=== PATIENT | female | born 1975 | race Caucasian/White ===

== ENCOUNTER 2022-05-01 08:37 | Emergency (ER) | payer OTHER ==
[2022-05-01 09:01] LABS: Epithelial Cells RARE /HPF (FEW); Mucus SLIGHT /HPF (NEGATIVE)
[2022-05-01 09:02] LABS: Appearance CLEAR (CLEAR); Bilirubin NEGATIVE (NEGATIVE); Dipstick done @ ? MAIN LAB; Glucose NEGATIVE (NEGATIVE); Ketones NEGATIVE (NEGATIVE); Nitrite NEGATIVE (NEGATIVE); Protein,Urine Dip 30 (Negative); RBC LARGE Ery/ul (0-5); Specific Gravity >=1.030 (1.005-1.025); Urine Cultured Indicated? YES; Urobilinogen 0.2 mg/dL (0-1)
[2022-05-01] MEDS ORDERED: TORAdol 30 mg Injection IM ONE (09:08)
[2022-05-01] MEDS ORDERED: Norflex 60 MG/2 ML IM ONE (09:09)
[2022-05-01] MEDS ORDERED: Norflex 60 MG/2 ML ONE (09:16)
[2022-05-01] MEDS ORDERED: TORAdol 30 mg Injection ONE (09:16)
[2022-05-01 09:39] LABS: Absolute Neutrophil Ct (ANC) 5.14 x10^3/uL (1.4-6.9); Basophil (Absolute #) 0.03 x10^3/uL (0-0.4); Eosinophil (Absolute #) 0 x10^3/uL (0-0.5); Hematocrit 39.4 % (35-47); Hemoglobin 13.2 g/dL (12.0-16.0); Lymphocyte (Absolute #) 1.34 x10^3/uL (1.0-4.6); Lymphocytes % 19.4 % (24.0-44.0); Mean Corpuscular Hemoglobin 33.5 pg (26-32); Mean Corpuscular Hgb Concent. 33.5 g/dL (32-36); Mean Platelet Volume 9.1 fL (7.5-11.0); Monocyte (Absolute #) 0.37 x10^3/uL (0.0-1.3); Monocytes % 5.4 % (0.0-12.0); Neutrophil % 74.4 % (36.0-66.0); Platelet Count 250 x10^3/uL (150-450); Red Blood Count 3.94 x10^6/uL (4.1-5.4); Red Cell Distribution Width 12.3 % (11.5-14.0); White Blood Count 6.9 x10^3/uL (4.0-10.5)
[2022-05-01 09:50] LABS: ALKALINE PHOSPHATASE 67 U/L (38-126); ANION GAP 10.6 MEQ/L (5-15); BLOOD UREA NITROGEN 17 mg/dL (7-17); CHLORIDE 109 mmol/L (98-107); Calcium 8.4 mg/dL (8.4-10.2); Carbon Dioxide 23 mmol/L (22-30); Creatinine 1 0.97 mg/dL (0.52-1.04); EST GLOMERULAR FILTRATION RATE > 60.0 ML/MIN; Glucose 91 mg/dL (74-106); Potassium 3.7 mmol/L (3.5-5.1); SGOT/AST 28 U/L (14-36); SGPT/ALT 28 U/L (0-35); SODIUM 139 mmol/L (137-145); Total Protein 6.9 g/dL (6.3-8.2)
--- NOTE | 2022-05-01 09:56 | XRAY ---
Indication: Low back pain. History kidney stones. Multiple contiguous axial images obtained through the abdomen and pelvis without contrast using renal stone protocol. Comparison: April 01, 2016 Lung bases again demonstrates mild subsegmental atelectasis/scarring. Heart not enlarged. Again small hiatal hernia. New 1-2 mm distal right ureter calculus just proximal to UVJ (image [id number]). No hydronephrosis or hydroureter.. There has been interval cholecystectomy. No free fluid/air. Noncontrasted stomach and bowel loops appear nonobstructed with normal appendix. Remaining liver, pancreas, spleen, adrenal glands, kidneys, ureters, bladder, uterus, and aorta are unremarkable for noncontrast exam. Osseous structures intact. Impression: 1. New 1-2 mm distal right ureter calculus without hydronephrosis/hydroureter. 2. Stable small hiatal hernia. 3. Remaining CT abdomen/pelvis without contrast exam is negative.
[2022-05-01] MEDS ORDERED: Sodium Chloride 0.9% 1000 ML 1,000 ML IV STA (10:22)
[2022-05-01] MEDS ORDERED: Flomax 0.4 MG ONE (10:39)
[2022-05-01] MEDS ORDERED: Sodium Chloride 0.9% 1000 ML 1,000 ML ONE (10:47)
--- NOTE | 2022-05-01 11:00 | ERPHSYRPT ---
- History of Present Illness Time Seen by Provider: 05/01/22 09:03 Source: patient Exam Limitations: no limitations Patient Subjective Stated Complaint: C/O lower back pain since 04/27/22. Patient denies falls or injury. States she was treated for a UTI on 04/01/22 with a 5 day series of antibiotics. She has a history of kidney stones but indicates that this pain feels different than when she previously had kidney stones. Patient states the only time she doesn't have pain is when she is completly still; any movement causes pain to return. Triage Nursing Assessment: Patient ambulated back to ED with a slow gait grasping at her lower back. She is alert and oriented. No SOB. Skin tone normal. No skin alterations noted to back. Patient does display s/s of pain that increase with any movement. Physician History: 46-year-old presented with low back pain bilaterally across sacroiliac area with radiation to both buttocks and upper thighs, moderate to severe sharp for last 4 days, aggravated with movements and better with rest pain without numbness tingling weakness of lower extremities/loss of bowel or bladder control. Timing/Duration: day(s) (4), intermittent, gradual onset, worse Method of Injury: unknown Quality: sharp Back Pain Location: paraspinous muscles Back Pain Radiation: buttocks, upper legs Severity of Pain-Max: severe Severity of Pain-Current: severe Modifying Factors: Improves With: immobilization. Worsens With: movement Associated Symptoms: lower back pain Allergies/Adverse Reactions: No Known Drug Allergies Allergy (Verified 05/01/22 08:49) Hx Tetanus, Diphtheria Vaccination/Date Given: Yes Hx Influenza Vaccination/Date Given: No Hx Pneumococcal Vaccination/Date Given: No Immunizations Up to Date: Yes Travel Risk - International Travel Have you traveled outside of the country in past 3 weeks: No - Coronavirus Screening Are you exhibiting any of the following symptoms?: No Close contact with a COVID-19 positive Pt in past 14-21 Days: No - Vaccine Status Have you recieved a Covid-19 vaccination: Yes 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 - Review of Systems Constitutional: No Symptoms Ears, Nose, & Throat: No Symptoms Respiratory: No Symptoms Cardiac: No Symptoms Abdominal/Gastrointestinal: Abdominal Pain Genitourinary Symptoms: No Symptoms Musculoskeletal: Back Pain Neurological: No Symptoms Psychological: No Symptoms Endocrine: No Symptoms Hematologic/Lymphatic: No Symptoms Immunological/Allergic: No Symptoms - Past Medical History Pertinent Past Medical History: Yes GI Medical History: Gallbladder Disease, Hernia Psycho-Social History: Anxiety Other Medical History: Kidney stones - Past Surgical History Past Surgical History: Yes Gastrointestinal: Cholecystectomy, Hernia Repair Female Surgical History: Dilation & Curettage, Tubal Ligation, Other Other Surgical History: D AND C - Social History Smoking Status: Current every day smoker How long have you smoked: 20 YEARS Exposure to second hand smoke: Yes Drug Use: none Patient Lives Alone: No - Female History Hx Last Menstrual Period: NOW Hx Now: No (Tubal ligation) - Nursing Vital Signs Nursing Vital Signs: Initial Vital Signs Temperature 97.6 F 05/01/22 08:50 Pulse Rate 77 05/01/22 08:50 Respiratory Rate 18 05/01/22 08:50 Blood Pressure 122/67 05/01/22 08:50 O2 Sat by Pulse Oximetry 100 05/01/22 08:50 Pain Scale Pain Intensity [Lower back] 10 Pain Intensity 10 - Physical Exam General Appearance: no apparent distress, alert Eye Exam: PERRL/EOMI Ears, Nose, Throat Exam: normal ENT inspection Neck Exam: normal inspection, supple, full range of motion Respiratory Exam: normal breath sounds, lungs clear Cardiovascular Exam: regular rate/rhythm, normal heart sounds Gastrointestinal Exam: soft, normal bowel sounds, tenderness (Mild tenderness in the flank) Back Exam: normal inspection, decreased range of motion, muscle spasm, point tenderness (Bilateral sacroiliac area), No CVA tenderness, No vertebral tenderness Extremity Exam: normal inspection, normal range of motion Neurologic Exam: alert, oriented x 3, cooperative Skin Exam: normal color SpO2 Interpretation: normal SpO2: 100 O2 Delivery: Room Air Ordered Tests: Active Orders 24 hr Category Date Time Status ABDOMEN AND PELVIS W/0 CONTRAS [CT] Stat Exams 05/01/22 09:42 Completed CBC W DIFF Stat Lab 05/01/22 09:32 Completed CMP Stat Lab 05/01/22 09:32 Completed CULTURE,URINE Stat Lab 05/01/22 08:46 Received UA W/RFX CULTURE Stat Lab 05/01/22 08:46 Completed Medication Summary Generic Name Dose Route Start Last Admin Trade Name Freq PRN Reason Stop Dose Admin Tamsulosin HCl 0.4 mg 05/02/22 10:22 05/01/22 10:40 Tamsulosin Hcl 0.4 Mg Cap PO 05/02/22 10:23 0.4 mg NOW ONE Administration Discontinued Medications Generic Name Dose Route Start Last Admin Trade Name Priya PRN Reason Stop Dose Admin Sodium Chloride 1,000 mls @ 999 mls/hr 05/01/22 10:22 05/01/22 10:48 Sodium Chloride 0.9% 1000 Ml IV 05/01/22 11:22 999 mls/hr .Q1H1M STA Administration Sodium Chloride Confirm 05/01/22 10:47 Sodium Chloride 0.9% 1000 Ml Administered 05/01/22 10:48 Dose 1,000 mls @ ud .ROUTE .STK-MED ONE Ketorolac Tromethamine 30 mg 05/01/22 09:08 05/01/22 09:23 Ketorolac Tromethamine 30 Mg/Ml Inj IM 05/01/22 09:09 30 mg STAT ONE Administration Ketorolac Tromethamine Confirm 05/01/22 09:16 Ketorolac Tromethamine 30 Mg/Ml Inj Administered 05/01/22 09:17 Dose 30 mg .ROUTE .STK-MED ONE Morphine Sulfate Confirm 05/01/22 11:01 Morphine Sulfate 4 Mg/Ml Injection Administered 05/01/22 11:02 Dose 4 mg .ROUTE .STK-MED ONE Morphine Sulfate 4 mg 05/01/22 11:04 05/01/22 11:09 Morphine Sulfate 4 Mg/Ml Injection IV 05/01/22 11:05 4 mg STAT ONE Administration Ondansetron HCl Confirm 05/01/22 11:01 Ondansetron Hcl 4 Mg/2 Ml Vial Administered 05/01/22 11:02 Dose 4 mg .ROUTE .STK-MED ONE Ondansetron HCl 4 mg 05/01/22 11:02 05/01/22 11:03 Ondansetron Hcl 4 Mg/2 Ml Vial IV 05/01/22 11:03 4 mg STAT ONE Administration Orphenadrine Citrate 60 mg 05/01/22 09:09 05/01/22 09:23 Orphenadrine Citrate 60 Mg/2 Ml Vial IM 05/01/22 09:10 60 mg STAT ONE Administration Orphenadrine Citrate Confirm 05/01/22 09:16 Orphenadrine Citrate 60 Mg/2 Ml Vial Administered 05/01/22 09:17 Dose 60 mg .ROUTE .[facility] ONE Tamsulosin HCl Confirm 05/01/22 10:39 Tamsulosin Hcl 0.4 Mg Cap Administered 05/01/22 10:40 Dose 0.4 mg .ROUTE .[facility] ONE Lab/Rad Data: Laboratory Result Diagrams 05/01/22 09:32 05/01/22 09:32 Laboratory Results 05/01/22 05/01/22 05/01/22 Range/Units 09:32 09:32 08:46 WBC 6.9 (4.0-10.5) x10^3/uL RBC 3.94 L (4.1-5.4) x10^6/uL Hgb 13.2 (12.0-16.0) g/dL Hct 39.4 (35-47) % MCV 100.0 (78-100) fL MCH 33.5 H (26-32) pg MCHC 33.5 (32-36) g/dL RDW 12.3 (11.5-14.0) % Plt Count 250 (150-450) x10^3/uL MPV 9.1 (7.5-11.0) fL Gran % 74.4 H (36.0-66.0) % Immature Gran % (Auto) 0.4 (0.00-0.4) % Nucleat RBC Rel Count 0.0 (0.00-0.1) % Eos # (Auto) 0 (0-0.5) x10^3/uL Immature Gran # (Auto) 0.03 (0.00-0.03) x10^3u/L Absolute Lymphs (auto) 1.34 (1.0-4.6) x10^3/uL Absolute Monos (auto) 0.37 (0.0-1.3) x10^3/uL Absolute Nucleated RBC 0.00 (0.00-0.01) x10^3u/L Lymphocytes % 19.4 L (24.0-44.0) % Monocytes % 5.4 (0.0-12.0) % Eosinophils % 0.0 (0.00-5.0) % Basophils % 0.4 (0.0-0.4) % Absolute Granulocytes 5.14 (1.4-6.9) x10^3/uL Basophils # 0.03 (0-0.4) x10^3/uL Sodium 139 (137-145) mmol/L Potassium 3.7 (3.5-5.1) mmol/L Chloride 109 H (98-107) mmol/L Carbon Dioxide 23 (22-30) mmol/L Anion Gap 10.6 (5-15) MEQ/L BUN 17 (7-17) mg/dL Creatinine 0.97 (0.52-1.04) mg/dL Estimated GFR > 60.0 ML/MIN Glucose 91 (74-106) mg/dL Calcium 8.4 (8.4-10.2) mg/dL Total Bilirubin 0.50 (0.2-1.3) mg/dL AST 28 (14-36) U/L ALT 28 (0-35) U/L Alkaline Phosphatase 67 (38-126) U/L Serum Total Protein 6.9 (6.3-8.2) g/dL Albumin 4.0 (3.5-5.0) g/dL Urinalys Dipstick Clnc MAIN LAB Urine Color YELLOW (YELLOW) Urine Appearance CLEAR (CLEAR) Urine pH 5.0 (5-6) Ur Specific [place] >=1.030 A (1.005-1.025) POC Urine Protein Conf 30 A (Negative) Urine Ketones NEGATIVE (NEGATIVE) Urine Nitrite NEGATIVE (NEGATIVE) Urine Bilirubin NEGATIVE (NEGATIVE) Urine Urobilinogen 0.2 (0-1) mg/dL Urine Leukocytes NEGATIVE (NEGATIVE) Urine WBC (Auto) 3-5 A (0-5) /HPF Urine RBC (Auto) 3-5 A (0-2) /HPF U Epithel Cells (Auto) RARE (FEW) /HPF Urine Bacteria (Auto) NONE (NEGATIVE) /HPF Urine RBC LARGE A (0-5) Darryl/ul Urine Mucus (Auto) SLIGHT A (NEGATIVE) /HPF Ur Culture Indicated? YES Urine Glucose NEGATIVE (NEGATIVE) mg/dL - Progress Progress: improved, pain not gone completely Progress Note: 05/01/22 11:37 44-year-old is evaluated for bilateral low back pain for the last few days, more with movements palpation and difficulty ambulation. Negative neuro exam in lower extremities. Minimal tenderness in the anterior abdomen/flank area. Given symptomatic treatment, on reevaluation feeling better. Normal white count, fairly unremarkable chemistries, no UTI. Obtained CT abdomen pelvis without contrast which showed right-sided 1-2 mm stone without any obstruction. Given Flomax. I believe patient's symptoms are a combination of low back strain with some element of kidney stone. Recommended outpatient primary care and urology follow-up. Discussed signs symptoms of worsening needing return to ER which she seems understanding. Stable for discharge. Counseled pt/family regarding: lab results, diagnosis, need for follow-up, rad results - Departure Departure Disposition: Home Clinical Impression: Kidney stone on right side Low back pain Qualifiers: Chronicity: acute Back pain laterality: bilateral Sciatica presence: with sciatica Sciatica laterality: sciatica laterality unspecified Qualified Code(s): M54.40 - Lumbago with sciatica, unspecified side Condition: Stable Critical Care Time: No Referrals: JUVENCIO ALVAREZ [Primary Care Provider] - Follow Up with PCP/3 days Instructions: Kidney Stones (DC), Sciatica (DC) Additional Instructions: Take Tylenol/ibuprofen as needed. Follow-up with primary care/urology for reeva luation. Return to ER for intractable pain, vomiting, fever chills or difficulty urination, numbness tingling weakness of lower extremities, loss of bowel or bladder control etc. Prescriptions: Ibuprofen 600 mg PO Q6HPRN PRN 10 Days #20 tablet PRN Reason: Pain Cyclobenzaprine HCl 10 mg [Flexeril 10 MG] 10 mg PO TID #12 tablet Tamsulosin HCl 0.4 mg [Flomax 0.4 MG] 0.4 mg PO DAILY #30 cap
[2022-05-01] MEDS ORDERED: MORPHINE SULFATE 4 MG INJ ONE (11:01)
[2022-05-01] MEDS ORDERED: Zofran 4 MG/2 ML VIAL ONE (11:01)
[2022-05-01] MEDS ORDERED: Zofran 4 MG/2 ML VIAL IV ONE (11:02)
[2022-05-01] MEDS ORDERED: MORPHINE SULFATE 4 MG INJ IV ONE (11:04)
[2022-05-01 12:00] VITALS: BP 134/69; PULSE 60; O2SAT 98
[2022-05-02] MEDS ORDERED: Flomax 0.4 MG PO ONE (10:22)
== END 2022-05-01 12:06 | disposition home or self-care (01) ==
LOC: ED 08:37
DX: N20.0 Calculus of kidney (principal); M54.41 Lumbago with sciatica, right side; M54.42 Lumbago with sciatica, left side; Z87.442 Personal history of urinary calculi; Z72.0 Tobacco use
CPT/HCPCS: 36000; 36415; 74176; 80053; 81015; 85025; 87086; 96372; 96374; 96375; 99284; J1885; J2270; J2360; J2405; A9270-GY

== ENCOUNTER 2023-11-26 00:02 | Emergency (ER) | payer OTHER ==
[2012-02-05 15:27] VITALS: BP 108/70
== END 2023-11-26 00:27 | disposition left against medical advice (07) ==
LOC: ED 00:02
DX: Z53.21 Procedure and treatment not carried out due to patient leaving prior to being seen by health care provider (principal)

== ENCOUNTER 2024-03-09 09:04 | Emergency (ER) | payer OTHER ==
[2024-03-09 09:39] LABS: Absolute Neutrophil Ct (ANC) 6.22 x10^3/uL (1.56-6.13); BASOPHIL % 0.3 % (0.1-1.2); Basophil (Absolute #) 0.02 x10^3/uL (0.01-0.08); Eosinophil % 0.4 % (0.7-5.8); Eosinophil (Absolute #) 0.03 x10^3/uL (0.04-0.36); Hematocrit 38.5 % (34.1-44.9); IMMATURE GRAN # 0.02 x10^3u/L (0.001-0.031); IMMATURE GRAN % 0.3 % (0.001-0.429); Lymphocyte (Absolute #) 1.01 x10^3/uL (1.18-3.74); Lymphocytes % 13.1 % (19.3-51.7); Mean Cell Volume 96.7 fL (79.4-94.8); Mean Corpuscular Hemoglobin 32.7 pg (25.6-32.2); Mean Corpuscular Hgb Concent. 33.8 g/dL (32.2-35.5); Mean Platelet Volume 8.7 fL (9.4-12.3); Monocytes % 5.2 % (4.7-12.5); Neutrophil % 80.7 % (34.0-71.1); Platelet Count 247 x10^3/uL (182-369); Red Blood Count 3.98 x10^6/uL (3.93-5.22); Red Cell Distribution Width 12.4 % (11.7-14.4); White Blood Count 7.7 x10^3/uL (3.98-10.04)
[2024-03-09 09:49] LABS: Appearance Cloudy (Clear); Bacteria Rare /HPF (None Seen); Bilirubin Negative (Negative); Blood Large (Negative); Epithelial Cells Rare /HPF (None Seen); Glucose, Urine Negative (Negative); Hyaline Casts NONE SEEN /LPF (0-2); Ketones Negative (Negative); Leukocyte Esterase Moderate (Negative); Nitrite Negative (Negative); Ph 5.5 (4.6-8.0); Protein,Urine Dip Trace (Negative); RBC >100 /HPF (0-5); Specific Gravity 1.015 (1.005-1.030); Urobilinogen 0.2 mg/dL (0.2); WBC 51-100 /HPF (0-5)
[2024-03-09 09:53] LABS: ALBUMIN 3.9 g/dL (3.5-5.0); ANION GAP 11.4 MEQ/L (5-15); BILIRUBIN,TOTAL 1.4 mg/dL (0.2-1.3); Calcium 8.7 mg/dL (8.4-10.2); Creatinine 1 0.97 mg/dL (0.52-1.04); EST GLOMERULAR FILTRATION RATE 71.6 ML/MIN; Potassium 3.7 mmol/L (3.5-5.1); Total Protein 6.8 g/dL (6.3-8.2)
[2024-03-09] MEDS ORDERED: Sodium Chloride 0.9% 1000 ML 1,000 ML ONE (09:54)
[2024-03-09] MEDS ORDERED: TORAdol 30 mg Injection ONE (09:54)
[2024-03-09] MEDS: TORAdol 30 mg Injection IV ONE (09:58)
--- NOTE | 2024-03-09 09:58 | ERPHSYRPT ---
- History of Present Illness Time Seen by Provider: 03/09/24 09:40 Historian: patient Exam Limitations: no limitations Patient Subjective Stated Complaint: pt co back pain and blood in urine since yesterday. Triage Nursing Assessment: pt alert, walked in, resp easy, skin w/d/p. abd soft, moves all ext well, no edema noted Physician History: 48yo F presents with hematuria and back pain. They experienced hematuria last night, describing it as similar to a urinary tract infection that appeared suddenly. There is also a burning sensation during urination, described as a 'contraction type feeling'. Back pain has been present for a few days, with pain noted on both the front and left side, more pronounced on the right side. There is a history of kidney stones, with episodes occurring approximately two years ago and another three to four years prior. The stones passed spontaneously without surgical intervention. Timing/Duration: yesterday Activities at Onset: rest Quality: sharpness, stabbing Abdominal Pain Onset Location: flank (bilateral) Pain Radiation: RLQ, LLQ Severity of Pain-Max: moderate Severity of Pain-Current: moderate Modifying Factors: Improves With: nothing. Worsens With: movement, palpation Associated Symptoms: back, No chest pain, No diaphoresis, No diarrhea, No f ever/chills, No loss of appetite, No nausea, No vomiting Previous symptoms: same symptoms as today Allergies/Adverse Reactions: No Known Drug Allergies Allergy (Verified 03/09/24 09:21) Hx Tetanus, Diphtheria Vaccination/Date Given: No Hx Influenza Vaccination/Date Given: No Hx Pneumococcal Vaccination/Date Given: No Immunizations Up to Date: Yes Travel Risk - International Travel Have you traveled outside of the country in past 3 weeks: No - Emerging Infectious Disease Are you exhibiting symptoms associated with any current EIDs: No - Review of Systems All Other Systems: Reviewed and Negative - Past Medical History Pertinent Past Medical History: Yes GI Medical History: Gallbladder Disease, Hernia Psycho-Social History: Anxiety Other Medical History: recurrent ear infection - Past Surgical History Past Surgical History: Yes Gastrointestinal: Cholecystectomy, Hernia Repair Female Surgical History: Dilation & Curettage, Tubal Ligation, Other Other Surgical History: D AND C - Female History Hx Last Menstrual Period: now Hx Now: No - Social History Smoking Status: Former smoker How long have you smoked: 20 YEARS Exposure to second hand smoke: Yes Drug Use: marijuana Patient Lives Alone: No - Social Determinants of Health Will the patient participate in the screening: Yes Do you worry about a steady place to live?: No Do you have any problems with any of the following?: No known problems In the past 12 months,have you had to go without utilities?: No Transportation Issues: No Has anyone in your support network made you feel unsafe?: No Have you or anyone in your house had to go without enough: No - Nursing Vital Signs Nursing Vital Signs: Initial Vital Signs Blood Pressure 132/68 03/09/24 09:30 O2 Sat by Pulse Oximetry 100 03/09/24 09:30 Pain Scale Pain Intensity 4 - Physical Exam General Appearance: no apparent distress Respiratory Exam: lungs clear, airway intact, No respiratory distress Cardiovascular Exam: regular rate/rhythm, normal heart sounds, capillary refill <2 sec Gastrointestinal/Abdomen Exam: soft, normal bowel sounds, tenderness (RLQ, LLQ), No distention, No guarding, No rebound Back Exam: CVA tenderness (right) SpO2 Interpretation: normal O2 Delivery: Room Air - Course Nursing assessment & vital signs reviewed: Yes Ordered Tests: Active Orders 24 hr Category Date Time Status IV Insertion STAT Care 03/09/24 09:25 Active NPO (ED) STAT Care 03/09/24 09:25 Active ABDOMEN AND PELVIS W/0 CONTRAS [CT] Stat Exams 03/09/24 10:10 Completed CBC W DIFF Stat Lab 03/09/24 09:37 Completed CMP Stat Lab 03/09/24 09:37 Completed CULTURE,URINE Stat Lab 03/09/24 09:27 Received UA W/RFX UR CULTURE Stat Lab 03/09/24 09:27 Completed Medication Summary Discontinued Medications Generic Name Dose Route Start Last Admin Trade Name Freq PRN Reason Stop Dose Admin Sodium Chloride 1,000 mls @ 999 mls/hr 03/09/24 09:25 03/09/24 11:19 Sodium Chloride 0.9% 1000 Ml IV 03/09/24 10:25 Infused .Q1H1M STA Infusion Sodium Chloride Confirm 03/09/24 09:54 Sodium Chloride 0.9% 1000 Ml Administered 03/09/24 09:55 Dose 1,000 mls @ ud .ROUTE .STK-MED ONE Ceftriaxone Sodium 1 gm in 100 mls @ 200 mls/hr 03/09/24 10:12 03/09/24 11:19 Rocephin 1 Gm / 100 Ml Nacl IV 03/09/24 10:41 Infused STAT ONE Infusion Ceftriaxone Sodium Confirm 03/09/24 10:15 Rocephin 1 Gm / 100 Ml Nacl Administered 03/09/24 10:16 Dose 1 gm in 100 mls @ ud IV .STK-MED ONE Ketorolac Tromethamine 30 mg 03/09/24 09:44 03/09/24 09:58 Ketorolac Tromethamine 30 Mg/Ml Inj IV 03/09/24 09:45 30 mg STAT ONE Administration Ketorolac Tromethamine Confirm 03/09/24 09:54 Ketorolac Tromethamine 30 Mg/Ml Inj Administered 03/09/24 09:55 Dose 30 mg .ROUTE .STK-MED ONE Lab/Rad Data: Laboratory Result Diagrams 03/09/24 09:37 03/09/24 09:37 Laboratory Results 03/09/24 03/09/24 03/09/24 Range/Units 09:37 09:37 09:27 WBC 7.7 (3.98-10.04) x10^3/uL RBC 3.98 (3.93-5.22) x10^6/uL Hgb 13.0 (11.2-15.7) g/dL Hct 38.5 (34.1-44.9) % MCV 96.7 H (79.4-94.8) fL MCH 32.7 H (25.6-32.2) pg MCHC 33.8 (32.2-35.5) g/dL RDW 12.4 (11.7-14.4) % Plt Count 247 (182-369) x10^3/uL MPV 8.7 L (9.4-12.3) fL Gran % 80.7 H (34.0-71.1) % Immature Gran % (Auto) 0.3 (0.001-0.429) % Nucleat RBC Rel Count 0.0 (0.00-0.2) % Eos # (Auto) 0.03 L (0.04-0.36) x10^3/uL Immature Gran # (Auto) 0.02 (0.001-0.031) x10^3u/L Absolute Lymphs (auto) 1.01 L (1.18-3.74) x10^3/uL Absolute Monos (auto) 0.40 (0.24-0.86) x10^3/uL Absolute Nucleated RBC 0.00 (0.00-0.012) x10^3u/L Lymphocytes % 13.1 L (19.3-51.7) % Monocytes % 5.2 (4.7-12.5) % Eosinophils % 0.4 L (0.7-5.8) % Basophils % 0.3 (0.1-1.2) % Absolute Granulocytes 6.22 H (1.56-6.13) x10^3/uL Basophils # 0.02 (0.01-0.08) x10^3/uL Sodium 139 (135-145) mmol/L Potassium 3.7 (3.5-5.1) mmol/L Chloride 107 (98-107) mmol/L Carbon Dioxide 25 (22-30) mmol/L Anion Gap 11.4 (5-15) MEQ/L BUN 11 (7-17) mg/dL Creatinine 0.97 (0.52-1.04) mg/dL Estimated GFR 71.6 ML/MIN Glucose 93 (74-106) mg/dL Calcium 8.7 (8.4-10.2) mg/dL Total Bilirubin 1.40 H (0.2-1.3) mg/dL AST 24 (14-36) U/L ALT 22 (0-35) U/L Alkaline Phosphatase 76 (38-126) U/L Serum Total Protein 6.8 (6.3-8.2) g/dL Albumin 3.9 (3.5-5.0) g/dL Urine Color Yellow (Yellow) Urine Appearance Cloudy A (Clear) Urine pH 5.5 (4.6-8.0) Ur Specific [place] 1.015 (1.005-1.030) Urine Protein Trace A (Negative) Urine Glucose (UA) Negative (Negative) mg/dL Urine Ketones Negative (Negative) Urine Blood Large A (Negative) Urine Nitrite Negative (Negative) Urine Bilirubin Negative (Negative) Urine Urobilinogen 0.2 (0.2) mg/dL Ur Leukocyte Esterase Moderate A (Negative) U Hyaline Cast (Auto) NONE SEEN (0-2) /LPF Urine Microscopic RBC >100 A (0-5) /HPF Urine Microscopic WBC 51-100 A (0-5) /HPF Ur Epithelial Cells Rare (None Seen) /HPF Urine Bacteria Rare A (None Seen) /HPF Urine Culture Reflexed YES (NO) - Progress Progress Note: Hematuria Presents with hematuria since last night, accompanied by back pain and dysuria. History of nephrolithiasis, last episode two years ago. Differential diagnosis includes recurrent nephrolithiasis and UTI. No known drug allergies. - Order urinalysis and urine culture - CT abd/pelvis - Prescribe analgesics as needed - Advise increased fluid intake Back Pain Back pain for a few days, likely related to hematuria and potential nephrolithiasis. Pain is bilateral, more pronounced on the right, with no significant abdominal tenderness. - Order imaging studies if urinalysis and urine culture suggest nephrolithiasis - Recommend rest and avoidance of strenuous activities - Prescribe analgesics as needed. 03/09/24 10:22 UA significant for UTI, 1g Rocephin given in ER today. Will DC home with Macrobid 100mg BID x 5 days. Counseled pt/family regarding: lab results, diagnosis, need for follow-up, rad results Medical Desision Making - Diagnostic Testing Diagnostic test were ordered, analyzed, and reviewed by me: Yes Radiological Interpretation: Interpreted by me, Reviewed by me, Teleradiologist Report - Risk of complications The pt has a mod risk of morbidity or mortality based on: Need for prescription drug management - Departure Departure Disposition: Home Clinical Impression: UTI (urinary tract infection), Left ovarian cyst Condition: Good Critical Care Time: No Referrals: JUVENCIO ALVAREZ [Primary Care Provider] - Follow up/PCP as directed MELODY RAMOS DO [ACTIVE STAFF] - Follow up/PCP as directed Instructions: Urinary tract infections in adults Prescriptions: Nitrofurantoin Macro 100 mg [Macrobid 100MG Capsule] 100 mg PO BID 5 Days #10 cap Ketorolac Trometh 10 mg Tab [TORAdol 10 MG TABLET] 10 mg PO TID PRN 7 Days #21 tablet PRN Reason: Pain
[2024-03-09] MEDS: Sodium Chloride 0.9% 1000 ML 1,000 ML IV STA (09:59)
[2024-03-09 10:03] VITALS: PULSE 64; RESP 16
[2024-03-09] MEDS ORDERED: ROCEPHIN 1 GM / 100 ML NaCl 1 GM/100 ML IVPB IV ONE (10:15)
[2024-03-09] MEDS: ROCEPHIN 1 GM / 100 ML NaCl 1 GM/100 ML IVPB IV ONE (10:15)
--- NOTE | 2024-03-09 11:09 | XRAY ---
CLINICAL HISTORY: abd pain COMPARISON: Comparison is made with the CT Abdomen and Pelvis dated 05/01/2022 TECHNIQUE: Non-contrast CT of the abdomen and pelvis was performed, with the following protocol: axial images, and reconstructed coronal and sagittal images. No intravenous contrast was administered. One of the following dose reduction techniques was utilized for this exam: Automated exposure control, adjustment of the mA and/or kV according to patient size, and use of iterative reconstruction. FINDINGS: Abdomen: Liver: Normal in size, shape, and density. No focal lesions, cysts, or masses were identified. Gallbladder and Biliary System: Surgically removed with a clear surgical bed. Prominent CBD measures 6 mm likely post cholecystectomy. Pancreas: Pancreatic head, body, and tail are visualized and appear normal in size and density. No pancreatic masses or calcifications were noted. Spleen: Normal in size, shape, and density. A small calcific focus is noted likely granulomatous. Kidneys and Adrenal Glands: Both kidneys are normal in size, shape, and position. Cortical thickness is within normal limits. No renal calculi however bilateral minimal hydronephrosis is noted. Adrenal glands are unremarkable. Appendix: The appendix is normal in size without sophy appendiceal fat stranding and without an appendicolith. No evidence of appendiceal abscess or perforation. Pelvis: Urinary Bladder: Normal in contour with circumferential increased wall thickness showed surrounding fat stranding could be due to cystitis for clinical and laboratory correlation. Uterus: Normal in size and contour. No masses or abnormal thickening. Ovaries: Left ovarian single hypodense lesion measures 4.6 x 4.0 cm most likely a cyst for further evaluation if clinically indicated. Cervix: No evidence of mass or abnormal thickening. Peritoneal and Retroperitoneal Structures: No free fluid or abnormal fluid collections were identified within the abdomen or pelvis. No lymphadenopathy was noted. Bowel: The visualized bowel loops are normal in caliber and appearance. No evidence of bowel obstruction or wall thickening. Bones and Soft Tissues: Pelvic bones and soft tissues are unremarkable. No fractures or abnormal masses were identified. Bilateral lung lower lobe fibrotic bands. IMPRESSION: 1. Newly seen bilateral minimal hydronephrosis associated with circumferential increased urinary bladder wall thickness with perivesical fat stranding could be due to acute cystitis, clinical and laboratory correlation are needed. 2. Newly seen left ovarian single hypodense lesion likely a cyst for further evaluation if clinically indicated. 3. Still noted Surgically removed GB with a clear surgical bed. 4. Stable a small splenic calcific focus likely granulomatous. 5. Stable bilateral lung lower lobe fibrotic bands. The Referring Physican office was called at on 9:58 AM GAS REGULATOR REPAIRER, 03/09/2024. Dr. Wilson was informed regarding the presence of Important Medical Findings. Electronically Signed by: Paulina Boyer MD. (03/09/2024 11:04:20 EST)
[2024-03-09 11:13] VITALS: BP 114/68; O2SAT 99
== END 2024-03-09 11:45 | disposition home or self-care (01) ==
LOC: ED 09:04
DX: N39.0 Urinary tract infection, site not specified (principal); N83.202 Unspecified ovarian cyst, left side; R31.9 Hematuria, unspecified; R30.0 Dysuria; M54.9 Dorsalgia, unspecified; Z79.899 Other long term (current) drug therapy
CPT/HCPCS: 36000; 36415; 74176; 80053; 81001; 85025; 87077; 87086; 87186; 96360; 96365; 96374; 99284; J0696; J1885

== ENCOUNTER 2024-05-27 06:32 | Day surgery (SDC) | payer BC, OTHER ==
[2012-02-05 15:27] VITALS: BP 108/70
== END 2024-05-27 07:05 | disposition home or self-care (01) ==
LOC: SDC 06:32
PROVIDERS: ATTEND Obstetrics & Gynecology
DX: Z53.8 Procedure and treatment not carried out for other reasons (principal)

== ENCOUNTER 2024-06-03 10:19 | Day surgery (SDC) | payer BC, OTHER ==
[2024-06-03] MEDS: CEFAZOLIN 2 GM/100 ML NaCl 2 GM/100 ML IVPB IV SCH (06:24)
[2024-06-03] MEDS: Transderm Scop 1.5MG Patch TOP PRN (06:25)
[2024-06-03] MEDS: Lactated Ringers 1,000 ML IV SCH (06:25)
[2024-06-03 06:29] LABS: HCG URINE TEST NEGATIVE (NEGATIVE)
[2024-06-03 06:45] VITALS: RESP 14; O2SAT 100
[2024-06-03 10:06] VITALS: BP 100/61; PULSE 62; TEMP 96.7
[~2024-06-03 10:19] MED LIST: DEMEROL 50 MG ONE; Ephedrine Sulfate 50 MG/ML ONE; SUBLIMAZE 100 MCG/2 ML ONE; Versed 2 MG/2 ML Injection ONE; propofoL IV ONE
--- NOTE | 2024-06-05 09:43 | OP ---
SURGERY DATE/TIME: 06/03/2024 [id number] PREOPERATIVE DIAGNOSIS: Menorrhagia. POSTOPERATIVE DIAGNOSIS: Menorrhagia. PROCEDURES: Hysteroscopy, dilatation and curettage with NovaSure ablation. SURGEON: Primo Kong DO [facility] OPERATOR: Maine Morley ANESTHESIA: General. ESTIMATED BLOOD LOSS: Minimal. COMPLICATIONS: None. INDICATIONS: The risks, benefits, indications, and alternatives of the procedure were reviewed with the patient prior to the procedure. The patient understood the risks of infection, bleeding, bowel injury, bladder injury, uterine perforation, pelvic infection, and thromboembolic disorder associated with this surgery and desires to have this surgery as a possible means to alleviate her current medical condition. DESCRIPTION OF PROCEDURE AND FINDINGS: At this point, patient was taken to the operating room and given general sedation, placed in a dorsal lithotomy position, prepped and draped in the usual sterile fashion. A weighted speculum was then placed in the patient's vagina and the anterior lip of the cervix was grasped with a single-tooth tenaculum. Endocervical dilators were advanced through the endocervical region to dilate the cervix and, at this point, a 5 mm hysteroscope was then placed into the endocervical region toward the fundal region where visualization appeared to be within normal limits and no gross abnormality was noted within the uterine cavity. From this point, the hysteroscope was removed and a curette was then placed into the fundus of the uterus and curettage was performed in all quadrants of the uterus, retrieving a [id number] amount of tissue. From this point, hemostasis was obtained. At this point, the NovaSure instrument was then taken through the endocervical region toward the fundal region, retracted approximately 1 cm and the instrument was engaged with a length of 6.5 cm and a width at 4.5 cm. The machine was turned on for an ablative time of 41 seconds. After complete ablation, the instrument was disengaged and removed from the uterine cavity without complication. From this point, all subsequent instruments were removed from the patient's vaginal region. The patient was then taken out of the dorsal lithotomy position, was taken out of anesthesia, was then taken to the recovery room in stable condition. All instruments and laps were accounted for x2.
== END 2024-06-03 10:20 | disposition home or self-care (01) ==
LOC: SDC 10:19
PROVIDERS: ATTEND Obstetrics & Gynecology
DX: N92.0 Excessive and frequent menstruation with regular cycle (principal)
CPT/HCPCS: 58563; 81025; J0690; J2175; J2250; J2704; J3010; A9270-GY